=== PATIENT | male | born 1975 | race African-American/Black ===

== ENCOUNTER 2021-09-30 22:49 | Emergency (ER) | payer BC, OTHER ==
[~2021-09-30] VITALS: Ht 177.8 cm; Wt 86.2 kg
[2021-09-30] MEDS ORDERED: EPINEPHrine HCL 1 MG/10 ML SYRG IV ONE (22:50)
[2021-09-30 22:58] VITALS: BP 122/87
[2021-09-30] MEDS ORDERED: DEXTROSE 50% SYRINGE 50 ML IV ONE (23:20)
== END 2021-09-30 23:58 | disposition short-term general hospital (02) ==
LOC: EDBD 22:49 → ER 22:49
DX: T14.8XXA Other injury of unspecified body region, initial encounter (principal); I46.9 Cardiac arrest, cause unspecified; V23.4XXA Motorcycle driver injured in collision with car, pick-up truck or van in traffic accident, initial encounter; Y93.89 Activity, other specified; Y92.410 Unspecified street and highway as the place of occurrence of the external cause; Y99.8 Other external cause status
CPT/HCPCS: 36556; 71045; 92950; 93005; 99291; J0171; J7042